=== PATIENT | male | born 1980 | race African-American/Black ===

== ENCOUNTER 2016-11-05 11:29 | Outpatient (CLI) | payer BC ==
[2016-11-05 12:13] LABS: Hemoglobin A1c 5.3 % (4.0-6.0)
[2016-11-05 12:49] LABS: #Basophils 0.1 thou/uL (0.0-0.2); #Eosinphils 0.3 thou/uL (0.0-0.7); #Lymphocytes 2.8 thou/uL (1.20-3.40); #Monocytes 0.5 thou/uL (0.11-0.59); #Neutrophils 2.8 thou/uL (1.40-6.50); %Eosinophils 4.2 % (0.0-10.0); %Lymphocytes 44.4 % (21.0-51.0); %Monocytes 7.1 % (0.0-10.0); %Neutrophils 43.4 % (42.0-75.0); Hemoglobin 14.6 g/dL (14.0-18.0); Mean Corpuscular HGB CONC 31.4 g/dL (32.0-36.0); Mean Corpuscular Hemoglobin 28.6 pg (27.0-31.0); Mean Corpuscular Volume 91.1 fl (80.0-94.0); Mean Platelet Volume 7.1 fL (7.4-10.4); Platelet Count 236 thou/uL (130-400); RBC Distribution Width 13.4 % (11.5-14.5); White Blood Cell (WBC) Count 6.4 thou/uL (4.8-10.8)
[2016-11-05 13:05] LABS: ALT (SGPT) 16 U/L (0-55); AST (SGOT) 20 U/L (5-34); Albumin 4.3 g/dL (3.5-5.0); Alkaline Phosphatase 62 U/L (40-150); Anion Gap 17 mmol/L (10-20); BUN (Urea Nitrogen) 14 mg/dL (8.9-20.6); Bilirubin, Total 0.4 mg/dL (0.2-1.2); Calc. Creatinine Clearance 0 mL/min (70-130); Calcium 9.4 mg/dL (7.8-10.44); Carbon Dioxide 25 mmol/L (22-29); Cardiac Risk 4.4 (Less than 4.5); Chloride 103 mmol/L (98-107); Cholesterol 181 mg/dL (< 200 Desired); Estimated GFR-MDRD Greater than 90; Globulin 2.8 g/dL (2.4-3.5); Glucose 111 mg/dL (70-105); HDL Cholesterol 41 mg/dL (>60 Neg Risk); LDL Cholesterol, Calculated 121 mg/dL; Magnesium 2.3 mg/dL (1.6-2.6); Phosphorus 3.8 mg/dL (2.3-4.7); Potassium 4.5 mmol/L (3.5-5.1); Protein, Total 7.1 g/dL (6.0-8.3); Sodium 140 mmol/L (136-145); Triglycerides 93 mg/dL (Less than 150)
[2016-11-05 13:23] LABS: Free T4 (Free Thyroxine) 0.93 ng/dL (0.70-1.48); Thyroid Stimulating Hormone 0.7054 uIU/mL (0.35-4.94)
== END 2016-11-05 11:30 | disposition home or self-care (01) ==
LOC: MADLABBHPM 11:29
PROVIDERS: ATTEND Family Medicine
DX: I48.91 Unspecified atrial fibrillation (principal); E11.9 Type 2 diabetes mellitus without complications; R94.6 Abnormal results of thyroid function studies; Z91.19 Patient's noncompliance with other medical treatment and regimen
CPT/HCPCS: 36415; 80053; 80061; 83036; 83735; 84100; 84439; 84443; 85025

== ENCOUNTER 2017-05-02 16:54 | Outpatient (CLI) | payer BC ==
[2017-05-02 17:21] LABS: Hemoglobin A1c 5.7 % (4.0-6.0)
[2017-05-02 17:32] LABS: Cardiac Risk 5.4 (Less than 4.5)
[2017-05-02 18:02] LABS: Free T4 (Free Thyroxine) 1.19 ng/dL (0.70-1.48); Thyroid Stimulating Hormone 0.9984 uIU/mL (0.35-4.94)
[2017-05-03 17:31] LABS: Creatinine, Urine 406.79 mg/dL (63-166); Microalbumin Urine 4.2 mg/dL (0.5-50.0); Microalbumin/Creat Ratio 10.3 mg/g (Less than 30)
== END 2017-05-02 16:55 | disposition home or self-care (01) ==
LOC: MADLABBHPM 16:54
PROVIDERS: ATTEND Family Medicine
DX: E11.9 Type 2 diabetes mellitus without complications (principal); R94.6 Abnormal results of thyroid function studies
CPT/HCPCS: 36415; 80061; 82043; 83036; 84439; 84443

== ENCOUNTER 2018-11-02 10:50 | Outpatient (CLI) | payer BC ==
[2018-11-02 11:34] LABS: ALT (SGPT) 17 U/L (8-55); AST (SGOT) 12 U/L (5-34); Albumin 4.4 g/dL (3.5-5.0); Alkaline Phosphatase 64 U/L (40-150); Anion Gap 13 mmol/L (10-20); BUN (Urea Nitrogen) 17 mg/dL (8.9-20.6); Bilirubin, Total 0.4 mg/dL (0.2-1.2); Calc. Creatinine Clearance 0 mL/min (70-130); Calcium 9.7 mg/dL (7.8-10.44); Carbon Dioxide 26 mmol/L (22-29); Cardiac Risk 4.3 (Less than 4.5); Chloride 104 mmol/L (98-107); Cholesterol 204 mg/dl (< 200 Desired); Estimated GFR-MDRD Greater than 90; Glucose 185 mg/dL (70-105); HDL Cholesterol 47 mg/dL (>60 Neg Risk); LDL Cholesterol, Calculated 143 mg/dL; Protein, Total 7.4 g/dL (6.0-8.3); Sodium 139 mmol/L (136-145); Triglycerides 69 mg/dL (Less than 150)
--- NOTE | 2018-11-02 13:38 | RAD ---
RIGHT HIP 2 VIEWS: HISTORY: Chronic hip pain. No trauma. COMPARISON: None. FINDINGS: There is mild acetabular under coverage of the femoral head. There are subsequent ring femoral head/ neck osteophytes. Enthesopathic changes are present on the medial margin of the femoral diaphysis incompletely evaluate d. There is a small calcification projecting over the lateral femoral cortex. 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 POS: [facility]
[2018-11-02 19:18] LABS: Creatinine, Urine 108.85 mg/dL (63-166); Microalbumin/Creat Ratio 9.2 mg/g (Less than 30)
== END 2018-11-02 10:51 | disposition home or self-care (01) ==
LOC: MADLABBHPM 10:50
PROVIDERS: ATTEND Family Medicine
DX: M25.551 Pain in right hip (principal); E78.2 Mixed hyperlipidemia; E11.9 Type 2 diabetes mellitus without complications; M16.11 Unilateral primary osteoarthritis, right hip
CPT/HCPCS: 36415; 80053; 80061; 82043; 83036

== ENCOUNTER 2021-12-10 09:48 | Outpatient (CLI) | payer BC | END 2021-12-10 09:49 | disposition home or self-care (01) | LOC: MADLAB 09:48 → MADRAD 09:49 | PROVIDERS: ATTEND Family Medicine | DX: M54.41 Lumbago with sciatica, right side (principal); M54.42 Lumbago with sciatica, left side; M47.816 Spondylosis without myelopathy or radiculopathy, lumbar region | CPT/HCPCS: 72100 ==